=== PATIENT | female | born 1990 ===

== ENCOUNTER 2020-12-20 16:09 | Emergency (ER) | payer OTHER ==
[~2020-12-20] VITALS: Ht 167.6 cm; Wt 54.4 kg
== END 2020-12-20 21:26 | disposition home or self-care (01) ==
LOC: ER 16:09
DX: O20.9 Hemorrhage in early pregnancy, unspecified (principal); R10.2 Pelvic and perineal pain

== ENCOUNTER 2020-12-23 10:00 | Outpatient (CLI) | payer OTHER | END 2020-12-23 11:30 | disposition home or self-care (01) | LOC: PRENATAL 10:00 | PROVIDERS: ATTEND Obstetrics & Gynecology Maternal & Fetal Medicine | DX: Z36.89 Encounter for other specified antenatal screening (principal); O36.80X1 Pregnancy with inconclusive fetal viability, fetus 1; Z3A.12 12 weeks gestation of pregnancy ==

== ENCOUNTER 2021-06-28 09:13 | Outpatient (CLI) | payer OTHER | END 2021-06-28 09:35 | disposition home or self-care (01) | LOC: NST 09:13 | PROVIDERS: ATTEND Obstetrics & Gynecology Maternal & Fetal Medicine | DX: Z34.83 Encounter for supervision of other normal pregnancy, third trimester (principal) ==

== ENCOUNTER 2021-06-28 12:15 | Inpatient (IN) | payer OTHER ==
[~2021-06-28] VITALS: Ht 160 cm; Wt 68.0 kg
[2021-07-06] MEDS ORDERED: PRENATAL TABLE1 EAC1 PO (10:06)
== END 2021-07-09 13:04 | disposition home or self-care (01) | DRG 788 ==
LOC: OB/GYN 07-05 12:15 → LDR 07-06 05:52 → OB/GYN 07-06 19:15
PROVIDERS: ADMIT Obstetrics & Gynecology Maternal & Fetal Medicine; ATTEND Obstetrics & Gynecology Maternal & Fetal Medicine
PROC: 4A1HXCZ Monitoring of Products of Conception, Cardiac Rate, External Approach (ICD-10-PCS; 2021-07-06)
PROC: 10D00Z1 Extraction of Products of Conception, Low, Open Approach (ICD-10-PCS; principal; 2021-07-06 17:00)
DX: O33.8 Maternal care for disproportion of other origin (principal); Z3A.40 40 weeks gestation of pregnancy; Z37.0 Single live birth; Z20.822 Contact with and (suspected) exposure to COVID-19

== ENCOUNTER 2021-07-05 09:20 | Outpatient (CLI) | payer OTHER ==
[2021-07-06] MEDS ORDERED: PRENATAL TABLE1 EAC1 PO (10:06)
== END 2021-07-05 09:50 | disposition home or self-care (01) ==
LOC: NST 09:20
PROVIDERS: ATTEND Obstetrics & Gynecology Maternal & Fetal Medicine
DX: Z34.83 Encounter for supervision of other normal pregnancy, third trimester (principal)